=== PATIENT | male | born 1950 | race Caucasian/White ===

== ENCOUNTER 2017-12-07 11:28 | Emergency (ER) | payer MEDICARE ==
[~2017-12-07] VITALS: Ht 165.1 cm; Wt 77.3 kg
[~2017-12-07 11:28] MED LIST: ADV100/50 INH; ADV250/50 INH; ALB6.7R INH; ALBU8.5H12 IH; ALL300 PO; AMO500 PO; ASP81 PO; ASPI-715 PO; AZIT500T47 PO; CAR6.25 PO; CEFU500T50 PO; CELE-1 PO; CIP500 PO; COLC0.6T2 PO; CYC10 PO; DOXY-179 PO; ENA25 PO; FLUT1DIS28 IH; FURO-43 PO; GUAI480S48 PO; HYDR2TAB4 PO; IPRA3AMP37 IH; ISOS30TA51 PO; KET10 PO; LEV500 PO; LEVO-85 PO; LOR10/500 PO; LOR5 PO; LOR5/325 PO; MEC25 PO; MELA3TAB14 PO; MELO-149 PO; METH4TAB57 PO; METO-1 PO; METR-1 PO; MIR; MIR15 PO; MOM PO; MOMR NS; NAP250 PO; NAPR-1043 PO; NAPR500T31 PO; NIT4 SL; NITR60OI TOP; OXY10 PO; OXYC-528 PO; OXYC-689 PO; OXYC-865 PO; OXYC-869 PO; OXYGEN INH; PAN20 PO; PAN40 PO; PER PO; PRE10 PO; PRE20 PO; PRE5 PO; PRED20TA6 PO; PRO25 PO; PROAIRPT IH; PSYP PO; SIMV-44 PO; SUC1 PO
[2017-12-07] MEDS ORDERED: LISI-374 (11:35)
[2017-12-07] MEDS ORDERED: NS(*) 0.9% 1000 ML BAG 1,000 ML IV ONE (11:58)
[2017-12-07] MEDS ORDERED: diphenhydrAMINE 50 MG/ML VIAL IVP ONE (12:00)
[2017-12-07] MEDS ORDERED: METOCLOPRAMIDE 10 MG/2 ML SDV IVP ONE (12:00)
--- NOTE | 2017-12-07 12:10 | ER Report ---
History and Physical Time Seen By MD: 11:37 Hx. 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 Denies prior migraines denies knowledge of migraines in the family denies trauma denies prior cranial pathology or surgery denies neurological deficits denies visual changes denies fevers. Endorses chills. Denies other symptoms including sore throat cough chest pain shortness of breath rashes. No other concerns or complaints today. He normally uses marijuana unknown amount daily duration many many years, however he has not used in the last few days due to discomfort from the headaches. Denies other alcohol or drugs. REVIEW OF SYSTEMS: Constitutional: Otherwise negative Eyes: No discharge. ENT: No sore throat. Cardiovascular: No chest pain, no palpitations. Respiratory: No cough, no shortness of breath. Gastrointestinal: No abdominal pain Genitourinary: No hematuria. Musculoskeletal: No back pain. Skin: No rashes. Neurological: No focal deficits Allergies: Coded Allergies: No Known Allergies (Verified Allergy, Mild, 12/07/17) Home Meds Active Scripts Hydrocodone Bit/Acetaminophen (HYDROCODON-ACETAMINOPHEN 5-325) 1 Each Tablet, 1 EACH PO Q4-6H Y for PAIN, #6 TAB 0 Refills TAKE ONE TABLET BY MOUTH EVERY 4-6 HOURS NEEDED FOR PAIN Prov:ДМИТРИЙ ABREU MD 09/20/17 Naproxen (NAPROXEN) 500 Mg Tablet, 500 MG PO BID for 7 Days, #14 TAB Prov:JULIEN BAILEY MD 07/30/17 Oxycodone Hcl/Acetaminophen (PERCOCET 5-325 MG TABLET) 1 Each Tablet, 1 EACH PO Q4-6H Y for PAIN, #14 Prov:MARIYA GARCIA MD 06/19/14 Reported Medications Lisinopril (LISINOPRIL) 40 Mg Tablet, BID 12/07/17 Albuterol Sulfate (PROVENTIL HFA) 6.7 Gm Inh, 1-2 PUFF INH 3-4XD, INH 08/20/16 Melatonin (MELATONIN) 3 Mg Tab.rapdis, 3 MG PO DAILY 02/27/16 Carvedilol (Coreg) 6.25 Mg Tab, 6.25 MG PO BID, 0 Refills 08/29/11 Aspirin (Aspirin) 81 Mg Tablet.dr, 81 MG PO DAILY, 0 Refills Hold if going to have surgery 08/29/11 Pantoprazole Sod (Protonix) 40 Mg Tabec, 40 MG PO BID, 0 Refills 08/29/11 Hx Smoking: Yes Smoking Status: Former Smoker Exposure to Second Hand Smoke?: No Hx Substance Use Disorder: Yes (weed) Hx Alcohol Use: No Constitutional Vital Sign - Last 24 Hours 12/07/17 12/07/17 12/07/17 12/07/17 11:33 11:35 11:38 11:48 Temp 98.1 Pulse 54 59 53 Resp 16 B/P (MAP) 134/103 (113) 134/103 Pulse Ox 97 97 98 O2 Delivery Room Air 12/07/17 12/07/17 12/07/17 12/07/17 11:53 11:58 12:00 12:03 Pulse 56 49 54 B/P (MAP) 149/88 (108) Pulse Ox 98 95 94 12/07/17 12/07/17 12/07/17 12/07/17 12:08 12:13 12:18 12:23 Pulse 61 61 55 63 Pulse Ox 95 95 94 92 12/07/17 12/07/17 12/07/17 12/07/17 12:28 12:30 12:33 12:38 Pulse 63 70 51 B/P (MAP) 108/90 (96) Pulse Ox 94 93 94 12/07/17 12/07/17 12:43 12:48 Pulse 51 67 Pulse Ox 93 93 Intake and Output 12/07/17 12/07/17 12/08/17 15:00 23:00 07:00 Intake Total 1000 ml Balance 1000 ml Physical Exam General Appearance: The patient is alert, has no immediate need for airway protection and no signs of toxicity. Appears moderately uncomfortable Eyes: Pupils equal and round no pallor or injection. Extraocular movements intact ENT, Mouth: Mucous membranes are moist. Respiratory: There are no retractions, lungs are clear to auscultation. Cardiovascular: Regular rate and rhythm. No murmurs gallops or rubs Gastrointestinal: Abdomen is scaphoid bowel sounds are normal Neurological: Normal neurological exam including cranial nerves Skin: Warm and dry, no rashes. Musculoskeletal: Neck is supple non tender. Extremities are nontender, nonswollen and have full range of motion. No edema DIFFERENTIAL DIAGNOSIS: After history and physical exam differential diagnosis was considered for hypertensive bleed, mass effect, subarachnoid or subdural less likely, migraine type headache or other vascular headache. Plan for CT scan of the head and neck and laboratory survey to include ESR and migraine cocktail with fluids with reevaluation. Medical Decision Making Data Points Result Diagram: 12/07/17 1143 12/07/17 1143 Laboratory Hematology Test 12/07/17 11:43 Red Blood Count 5.07 M/uL (4.00-5.60) Mean Corpuscular Volume 96.9 fL (80.0-96.0) Mean Corpuscular Hemoglobin 33.6 pg (26.0-33.0) Mean Corpuscular Hemoglobin Concent 34.7 g/dL (32.0-36.0) Red Cell Distribution Width 13.4 % (11.5-14.5) Mean Platelet Volume 8.4 fL (7.2-11.1) Neutrophils (%) (Auto) 71.4 % (39.4-72.5) Lymphocytes (%) (Auto) 20.0 % (17.6-49.6) Monocytes (%) (Auto) 5.2 % (4.1-12.4) Eosinophils (%) (Auto) 2.5 % (0.4-6.7) Basophils (%) (Auto) 0.9 % (0.3-1.4) Nucleated RBC Relative Count (auto) 0.0 /100WBC Neutrophils # (Auto) 5.4 K/uL (2.0-7.4) Lymphocytes # (Auto) 1.5 K/uL (1.3-3.6) Monocytes # (Auto) 0.4 K/uL (0.3-1.0) Eosinophils # (Auto) 0.2 K/uL (0.0-0.5) Basophils # (Auto) 0.1 K/uL (0.0-0.1) Nucleated RBC Absolute Count (auto) 0.00 K/uL Erythrocyte Sedimentation Rate 5 mm/HOUR (0-20) Sodium Level 139 mmol/L (137-145) Potassium Level 4.1 mmol/L (3.5-5.0) Chloride Level 106 mmol/L (98-107) Carbon Dioxide Level 22 mmol/L (22-30) Blood Urea Nitrogen 15 mg/dl (9-21) Creatinine 0.70 mg/dl (0.66-1.25) Glomerular Filtration Rate Calc > 60.0 Random Glucose 128 mg/dl (75-110) Calcium Level 9.2 mg/dl (8.4-10.2) Chemistry Test 12/07/17 11:43 White Blood Count 7.5 k/uL (4.5-11.0) Red Blood Count 5.07 M/uL (4.00-5.60) Hemoglobin 17.0 g/dL (14.0-18.0) Hematocrit 49.1 % (42.0-52.0) Mean Corpuscular Volume 96.9 fL (80.0-96.0) Mean Corpuscular Hemoglobin 33.6 pg (26.0-33.0) Mean Corpuscular Hemoglobin Concent 34.7 g/dL (32.0-36.0) Red Cell Distribution Width 13.4 % (11.5-14.5) Platelet Count 236 K/uL (150-450) Mean Platelet Volume 8.4 fL (7.2-11.1) Neutrophils (%) (Auto) 71.4 % (39.4-72.5) Lymphocytes (%) (Auto) 20.0 % (17.6-49.6) Monocytes (%) (Auto) 5.2 % (4.1-12.4) Eosinophils (%) (Auto) 2.5 % (0.4-6.7) Basophils (%) (Auto) 0.9 % (0.3-1.4) Nucleated RBC Relative Count (auto) 0.0 /100WBC Neutrophils # (Auto) 5.4 K/uL (2.0-7.4) Lymphocytes # (Auto) 1.5 K/uL (1.3-3.6) Monocytes # (Auto) 0.4 K/uL (0.3-1.0) Eosinophils # (Auto) 0.2 K/uL (0.0-0.5) Basophils # (Auto) 0.1 K/uL (0.0-0.1) Nucleated RBC Absolute Count (auto) 0.00 K/uL Erythrocyte Sedimentation Rate 5 mm/HOUR (0-20) Glomerular Filtration Rate Calc > 60.0 Calcium Level 9.2 mg/dl (8.4-10.2) ED Course/Re-evaluation ED Course The plan was discussed and agreed upon prior to orders placed. Re-evaluation Pain improved, patient feeling better and ready to go home. All results were discussed with patient and family all questions answered and understood I recommended PCP follow-up for discussion of possible migraine medication as needed, Excedrin Migraine for now should headache recur patient will go home to sleep in a dark room at this time. Decision to Disposition Date: Dec 07, 2017 Decision to Disposition Time: 14:44 Depart Departure Latest Vital Signs Vital Signs Date Time Temp Pulse Resp B/P (MAP) Pulse Ox O2 Delivery O2 Flow Rate FiO2 12/07/17 12:48 67 93 12/07/17 12:30 108/90 (96) 12/07/17 11:35 98.1 16 Room Air Impression: Primary Impression: Acute headache Condition: Improved Disposition: HOME OR SELF-CARE Referrals: CHELLE CRANDALL MD (PCP) Patient Instructions: Acute Headache (ED) Problem Qualifiers Primary Impression: Acute headache Headache type: unspecified Intractability: not intractable Qualified Codes : R51 - Headache CHELITA TRIPLETT MD Dec 07, 2017 12:10
[2017-12-07 12:13] LABS: PLATELET COUNT, AUTOMATED 236 K/uL (150-450)
[2017-12-07] MEDS ORDERED: IOPAMIDOL 76% 75 ML INFUS BTL 75 ML ONE (12:59)
[2017-12-07] MEDS ORDERED: NS 0.9% 20 ML SDV 60 ML ONE (12:59)
[2017-12-07 13:00] VITALS: BP 129/83
--- NOTE | 2017-12-07 14:02 | RADIOLOGY IMAGING REPORT ---
[place] [facility] [place] Ritesh Stevens : 1950 MR: [id number] V: [id number] EXAM DATE: ORDERING PHYSICIAN: CHELITA TRIPLETT TECHNOLOGIST: Location: [facility] Patient: Ritesh Stevens : 1950 Visit/Account:[id number] Date of Sevice: 12/07/2017 EXAMINATION: CT head without IV contrast HISTORY: Headache. COMPARISON: Brain MRI from 06/15/[address] head from 08/20/2016. TECHNIQUE: Contiguous axial images were obtained from the skull base to the vertex without intraven ous contrast. Sagittal and coronal reformatted images are also submitted. One of the following dose optimization techniques was utilized in the performance of this exam: Autom ated exposure control; adjustment of the mA and/or kV according to the patient's size; or use of an i terative reconstruction technique. Specific details can be referenced in the facility's radiology C T exam operational policy. FINDINGS: Brain volume: Mild generalized atrophy with associated concordant prominence of the ventricular syst em. Ventricles: Normal. Acute ischemic changes: None. Hemorrhage: No acute intracranial hemorrhage. Masses/edema: None. Archibald-white: Small area of encephalomalacia in the left cerebellum and small to moderate area of encep halomalacia in the right temporal occipital region, new from previous exams. White matter: Normal. Vessels: Negative. Extra-axial: Negative. Calvarium/scalp: Negative. Skull base/visualized face: Negative. Visualized sinuses/orbits: There is moderate concentric mucosal thickening in the left maxillary sin us and mild mucosal thickening otherwise normal sinuses. IMPRESSION: 1. No intracranial mass lesion or hemorrhage. No CT evidence of acute infarct. 2. 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 3. Moderate patchy inflammation of the paranasal sinuses, worst in the left maxillary sinus. Report Dictated By: Charo Zafar MD at 12/07/2017 1:52 PM Report E-Signed By: Charo Zafar MD at 12/07/2017 1:57 PM WSN:[id number]
--- NOTE | 2017-12-07 14:03 | RADIOLOGY IMAGING REPORT ---
FACILITY: [facility] PATIENT NAME: Ritesh Stevens : 1950 MR: [id number] V: [id number] EXAM DATE: ORDERING PHYSICIAN: CHELITA TRIPLETT TECHNOLOGIST: Location: [facility] Patient: Ritesh Stevens : 1950 Visit/Account:[id number] Date of Sevice: 12/07/2017 CT ANGIOGRAM HEAD W/ CONTRAST HISTORY: headache EXAMINATION: CT scan of the head without contrast CTA of the Neck with IV contrast CTA of the Head with IV contrast One of the following dose optimization techniques was utilized in the performance of this exam: Autom ated exposure control; adjustment of the mA and/or kV according to the patient's size; or use of an i terative reconstruction technique. Specific details can be referenced in the facility's radiology C T exam operational policy. TECHNIQUE: Overlapping thin sections were obtained during a bolus of IV contrast from the aortic ar ch through the vertex. Reconstruction of the source data set includes multiplanar 2D in the sagittal and coronal planes, and 3D coronal thin slab MIP series. 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 Stenosis of the internal carotid arteries are calculated using NASCET criteria. Contrast: 75 mL of IV Isovue-[address] scan of the head from 12/07/2017 TECHNIQUE: Contiguous axial images were obtained from the skull base to the vertex without intravenou s contrast. One of the following dose optimization techniques was utilized in the performance of this exam: Autom ated exposure control; adjustment of the mA and/or kV according to the patient's size; or use of an i terative reconstruction technique. Specific details can be referenced in the facility's radiology C T exam operational policy. COMPARISON STUDIES: None FINDINGS: Within the posterior temporal lobe there is a wedge-shaped area of diminished attenuation of the kurt ex extending into the white matter tracts measuring approximately 3 cm in greatest dimension. This is new when compared to the previous CT scan of 08/20/2016. Second area of focal wedge-shaped cortical infarction is seen in the left occipital lobe (image 11) m easuring approximately a centimeter in size. The ventricular system is midline in position and normal in configuration. Remainder the cortical gra y and white matter tracts are normal in both cerebral hemispheres. Calvarium is unremarkable. Mastoid air cells well-aerated. There is nearly complete opacification of the left maxillary sinus. This was similar to the previous examination Angiographic findings: Aortic arch and great vessels: negative Right CCA / ICA: Widely patent common and internal carotid arteries with no atherosclerotic disease or flow-limiting lesions Left CCA / ICA: Widely patent common and left internal carotid arteries with no atherosclerotic dis ease or flow-limiting lesions Vertebro-basilar: Both vertebral arteries are well visualized and opacified with no flow-limiting l esions or atherosclerotic disease. 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 Mild paraseptal emphysematous changes in the posterior aspects of the mid lung eddy. Thyroid normal. No pathologic lymphadenopathy in the neck. IMPRESSION: 1. Evidence of previous infarction in the superior posterior aspect of the right temporal lobe and a focus of focal infarction in the posterior inferior left cerebellum. 2. No acute vascular pathology. Specifically, no aneurysm or evidence of acute bleed. 3. Left maxillary mucous retention cyst or polyp occupying a good portion of the left maxillary sinus basically unchanged when compared to the previous study. Report Dictated By: Scott Berg MD at 12/07/2017 1:35 PM Report E-Signed By: Scott Berg MD at 12/07/2017 1:59 PM WSN:[id number]
[2017-12-07] MEDS ORDERED: KETOROLAC 30 MG/ML VIAL IVP ONE (14:10)
--- NOTE | 2017-12-07 14:10 | RADIOLOGY IMAGING REPORT ---
FACILITY: [facility] PATIENT NAME: Ritesh Stevens : 1950 MR: [id number] V: [id number] EXAM DATE: ORDERING PHYSICIAN: CHELITA TRIPLETT TECHNOLOGIST: Location: [facility] Patient: Ritesh Stevens : 1950 Visit/Account:[id number] Date of Sevice: 12/07/2017 CTA NECK/CAROTIDS W W/O CONTR HISTORY: headache Please refer to CTA scan of head and neck from same day. Report Dictated By: Scott Berg MD at 12/07/2017 2:04 PM Report E-Signed By: Scott Berg MD at 12/07/2017 2:06 PM WSN:[id number]
== END 2017-12-07 14:48 | disposition home or self-care (01) ==
LOC: ER 11:36
DX: R51 Headache (principal)
CPT/HCPCS: 70450; 70496; 70498; 85025; 85651; 96361; 96374; 96375; 99284; J1200; J1885; J2765; J7030; J7050; Q9967; 82310; 82374; 82435; 82565; 82947; 84132; 84295; 84520

== ENCOUNTER → 2017-12-10 | Outpatient (CLI) | payer MEDICARE ==
[~2017-12-10] MED LIST changes: +LISI-374
== END ==
LOC: RESP 01:24
PROVIDERS: ATTEND Family Medicine
DX: I20.9 Angina pectoris, unspecified (principal)
CPT/HCPCS: 93017

== ENCOUNTER → 2018-04-03 | Outpatient (CLI) | payer MEDICARE ==
[~2018-04-03] MED LIST changes: +BARIUM SULFATE 148 GM POWDER ONE; +BARIUM SULFATE 240 ML ORAL SUS (NECTAR) ONE
--- NOTE | 2018-04-03 14:28 | RADIOLOGY IMAGING REPORT ---
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 Findings: The modified barium swallow was performed by the speech pathologist. Fluoroscopic assistance was pro vided. Patient received thin barium and various food substances and a barium tablet. There is mild oral pharyngeal dysphasia. Please see the speech pathologist report for complete details. The fluor oscopy dose area product was 404.47 micro-Archibald per meter squared IMPRESSION: 1. As above Report Dictated By: Jessica Barnes MD at 04/03/2018 2:24 PM Report E-Signed By: Jessica Barnes MD at 04/03/2018 2:25 PM WSN:[email or web address]
== END ==
LOC: RAD 00:26
PROVIDERS: ATTEND Family Medicine
DX: R13.12 Dysphagia, oropharyngeal phase (principal)
CPT/HCPCS: 74230

== ENCOUNTER 2018-09-21 17:44 | Emergency (ER) | payer MEDICARE ==
[~2018-09-21 17:44] MED LIST changes: -BARIUM SULFATE 148 GM POWDER ONE; -BARIUM SULFATE 240 ML ORAL SUS (NECTAR) ONE
--- NOTE | 2018-09-21 17:56 | ER Report ---
History and Physical Time Seen By MD: 17:54 HPI/ROS CHIEF COMPLAINT: Loss of vision,? Stroke HISTORY OF PRESENT ILLNESS: 68-year-old male with a history of previous strokes presents with loss of vision in his right eye since 1 PM today. He notes he's having trouble seeing out of the lateral aspect of his eye. She notes no headache. No nausea or vomiting. He notes no fever or chills. He denies stiff neck. Patient also notes a mild chest pain. He notes some tightness. He rates it 2 out of 10 without associated symptoms. Patient has a history of coronary artery disease, status post previous NV. Patient had CTA of carotids and head in November of this year. They were notable for 2 old strokes. REVIEW OF SYSTEMS: Respiratory: No cough, no dyspnea. Cardiovascular: As above Gastrointestinal: No vomiting, no abdominal pain. Musculoskeletal: No back pain. Allergies: Coded Allergies: No Known Allergies (Verified Allergy, Mild, 09/21/18) Home Meds Reported Medications Lisinopril (LISINOPRIL) 40 Mg Tablet, BID 12/07/17 Albuterol Sulfate (PROVENTIL HFA) 6.7 Gm Inh, 1-2 PUFF INH 3-4XD, INH 08/20/16 Melatonin (MELATONIN) 3 Mg Tab.rapdis, 3 MG PO DAILY 02/27/16 Carvedilol (Coreg) 6.25 Mg Tab, 6.25 MG PO BID, 0 Refills 08/29/11 Aspirin (Aspirin) 81 Mg Tablet.dr, 81 MG PO DAILY, 0 Refills Hold if going to have surgery 08/29/11 Pantoprazole Sod (Protonix) 40 Mg Tabec, 40 MG PO BID, 0 Refills 08/29/11 Discontinued Scripts Hydrocodone Bit/Acetaminophen (HYDROCODON-ACETAMINOPHEN 5-325) 1 Each Tablet, 1 EACH PO Q4-6H PRN for PAIN, #6 TAB 0 Refills TAKE ONE TABLET BY MOUTH EVERY 4-6 HOURS NEEDED FOR PAIN Prov:ДМИТРИЙ ABREU MD 09/20/17 Naproxen (NAPROXEN) 500 Mg Tablet, 500 MG PO BID for 7 Days, #14 TAB Prov:JULIEN BAILEY MD 07/30/17 Oxycodone Hcl/Acetaminophen (PERCOCET 5-325 MG TABLET) 1 Each Tablet, 1 EACH PO Q4-6H PRN for PAIN, #14 Prov:MARIYA GARCIA MD 06/19/14 Past Medical/Surgical History Patient has a past medical history of NV, hypertension, hyperlipidemia, asthma, reflux, hiatal hernia, fractures, hard of hearing, marijuana use. Patient has a surgical history of shoulder surgery, colectomy, hiatal hernia repair. Patient has a family medical history of cancer, CAD. Reviewed Nurses Notes: Yes Old Medical Records Reviewed: Yes Hx Smoking: Yes Smoking Status: Former Smoker Exposure to Second Hand Smoke?: No Hx Substance Use Disorder: Yes (weed) Hx Alcohol Use: No Constitutional Vital Sign - Last 24 Hours 09/21/18 09/21/18 09/21/18 09/21/18 17:44 17:51 18:00 18:03 Temp 98.0 Pulse 63 65 Resp 12 12 B/P (MAP) 156/117 (130) 158/111 (127) 158/111 Pulse Ox 93 89 O2 Delivery Room Air 09/21/18 09/21/18 09/21/18 09/21/18 18:14 18:30 18:44 19:00 Pulse 63 61 Resp 9 21 B/P (MAP) 146/96 (113) 149/96 (113) Pulse Ox 92 93 09/21/18 09/21/18 09/21/18 09/21/18 19:05 20:22 20:27 20:29 Pulse 60 65 60 Resp 26 14 B/P (MAP) 114/111 (112) Pulse Ox 89 89 89 09/21/18 20:30 B/P (MAP) 137/103 (114) Physical Exam Vital signs stable, afebrile, pulse ox normal General Appearance: The patient is alert, has no immediate need for airway protection and no signs of toxicity. Alert and oriented 3 Eyes: Pupils equal and round no pallor or injection. ENT, Mouth: Mucous membranes are moist. Respiratory: There are no retractions, lungs are clear to auscultation. Cardiovascular: Regular rate and rhythm. Gastrointestinal: Abdomen is soft and non tender, no masses, bowel sounds normal. Neurological: Alert and oriented 3, cranial nerves II through XII intact except inferior lateral field of vision is gone from the right eye on oppositional testing., Motor 5/5 all groups, sensory intact to light touch 4 Skin: Warm and dry, no rashes. Musculoskeletal: Neck is supple non tender., No bruits Extremities are nontender, nonswollen and have full range of motion. DIFFERENTIAL DIAGNOSIS: After history and physical exam differential diagnosis was considered for weakness including but not limited to electrolyte abnormality, depression, anxiety, CVA, spinal cord abnormality, versus effusion and infectious causes. Medical Decision Making Data Points Result Diagram: 09/21/18175109/21/181751 Laboratory Hematology Test 09/21/18 17:52 Red Blood Count 5.39 M/uL (4.00-5.60) Mean Corpuscular Volume 96.8 fL (80.0-96.0) Mean Corpuscular Hemoglobin 33.4 pg (26.0-33.0) Mean Corpuscular Hemoglobin Concent 34.5 g/dL (32.0-36.0) Red Cell Distribution Width 13.4 % (11.5-14.5) Mean Platelet Volume 8.7 fL (7.2-11.1) Neutrophils (%) (Auto) 46.9 % (39.4-72.5) Lymphocytes (%) (Auto) 37.5 % (17.6-49.6) Monocytes (%) (Auto) 8.6 % (4.1-12.4) Eosinophils (%) (Auto) 5.8 % (0.4-6.7) Basophils (%) (Auto) 1.2 % (0.3-1.4) Nucleated RBC Relative Count (auto) 0.0 /100WBC Neutrophils # (Auto) 3.2 K/uL (2.0-7.4) Lymphocytes # (Auto) 2.5 K/uL (1.3-3.6) Monocytes # (Auto) 0.6 K/uL (0.3-1.0) Eosinophils # (Auto) 0.4 K/uL (0.0-0.5) Basophils # (Auto) 0.1 K/uL (0.0-0.1) Nucleated RBC Absolute Count (auto) 0.00 K/uL Prothrombin Time 13.2 seconds (12.0-14.4) Prothromb Time International Ratio 1.00 Activated Partial Thromboplast Time 31 seconds (23-35) Sodium Level 139 mmol/L (137-145) Potassium Level 4.1 mmol/L (3.5-5.0) Chloride Level 106 mmol/L (98-107) Carbon Dioxide Level 23 mmol/L (22-30) Blood Urea Nitrogen 18 mg/dl (9-21) Creatinine 0.80 mg/dl (0.66-1.25) Glomerular Filtration Rate Calc > 60.0 Random Glucose 151 mg/dl (75-110) Calcium Level 9.0 mg/dl (8.4-10.2) Total Bilirubin 0.9 mg/dl (0.2-1.3) Aspartate Amino Transf (AST/SGOT) 29 U/L (0-35) Alanine Aminotransferase (ALT/SGPT) 31 U/L (0-56) Alkaline Phosphatase 74 U/L (0-126) Troponin I < 0.012 ng/ml B-Type Natriuretic Peptide 24 pg/ml (0-100) Total Protein 7.5 g/dl (6.3-8.2) Albumin 4.2 g/dl (3.5-5.0) Chemistry Test 09/21/18 17:52 White Blood Count 6.8 k/uL (4.5-11.0) Red Blood Count 5.39 M/uL (4.00-5.60) Hemoglobin 18.0 g/dL (14.0-18.0) Hematocrit 52.1 % (42.0-52.0) Mean Corpuscular Volume 96.8 fL (80.0-96.0) Mean Corpuscular Hemoglobin 33.4 pg (26.0-33.0) Mean Corpuscular Hemoglobin Concent 34.5 g/dL (32.0-36.0) Red Cell Distribution Width 13.4 % (11.5-14.5) Platelet Count 218 K/uL (150-450) Mean Platelet Volume 8.7 fL (7.2-11.1) Neutrophils (%) (Auto) 46.9 % (39.4-72.5) Lymphocytes (%) (Auto) 37.5 % (17.6-49.6) Monocytes (%) (Auto) 8.6 % (4.1-12.4) Eosinophils (%) (Auto) 5.8 % (0.4-6.7) Basophils (%) (Auto) 1.2 % (0.3-1.4) Nucleated RBC Relative Count (auto) 0.0 /100WBC Neutrophils # (Auto) 3.2 K/uL (2.0-7.4) Lymphocytes # (Auto) 2.5 K/uL (1.3-3.6) Monocytes # (Auto) 0.6 K/uL (0.3-1.0) Eosinophils # (Auto) 0.4 K/uL (0.0-0.5) Basophils # (Auto) 0.1 K/uL (0.0-0.1) Nucleated RBC Absolute Count (auto) 0.00 K/uL Prothrombin Time 13.2 seconds (12.0-14.4) Prothromb Time International Ratio 1.00 Activated Partial Thromboplast Time 31 seconds (23-35) Glomerular Filtration Rate Calc > 60.0 Calcium Level 9.0 mg/dl (8.4-10.2) Total Bilirubin 0.9 mg/dl (0.2-1.3) Aspartate Amino Transf (AST/SGOT) 29 U/L (0-35) Alanine Aminotransferase (ALT/SGPT) 31 U/L (0-56) Alkaline Phosphatase 74 U/L (0-126) Troponin I < 0.012 ng/ml B-Type Natriuretic Peptide 24 pg/ml (0-100) Total Protein 7.5 g/dl (6.3-8.2) Albumin 4.2 g/dl (3.5-5.0) Coagulation Test 09/21/18 17:52 Prothrombin Time 13.2 seconds Prothromb Time International Ratio 1.00 Activated Partial Thromboplast Time 31 seconds EKG/Imaging EKG Interpretation 12 lead EK Rhythm: normal sinus rhythm [place]: normal QRS: Old anterior Q waves noted ST segments: normal, comparison to previous EKG dated 09/20/17. There is some flattening of the biphasic T waves in V1 through V3, nonspecific in nature Imaging Results: CT scan of the head without contrast, stroke alert was obtained. The results of the study are EXAMINATION: Head CT without intravenous contrast HISTORY: Vision changes. COMPARISON: 12/07/2017. TECHNIQUE: Contiguous axial images were obtained from the skull base to the vertex without intravenous contrast. Sagittal and coronal reformatted images are also submitted. One of the following dose optimization techniques was utilized in the performance of this exam: Automated exposure control; adjustment of the mA and/or kV according to the patient's size; or use of an iterative reconstruction technique. Specific details can be referenced in the facility's radiology CT exam operational policy. FINDINGS: Brain and intracranial structures: Chronic right temporal occipital infarct is unchanged. Chronic infarct in the left cerebellar hemisphere is unchanged. No midline shift, acute hemorrhage, mass, or evidence of acute infarct. Calvarium / scalp: Negative. Skull base / visualized face: Negative. Visualized sinuses / orbits: Mucous retention cyst and mild mucosal thickening in the left maxillary sinus. Mild mucosal thickening in the ethmoid air cells and right maxillary sinus. IMPRESSION: No intracranial hemorrhage or evidence of acute infarct. Unchanged chronic infarcts in the left cerebellar hemisphere and right temporal occipital region. The study was read by the radiologist. I viewed the images myself on the PACS system. X-ray: Single view portable chest x-ray was obtained. I viewed the images myself on the PACS system. My interpretation of the images is: No infiltrate, no effusion, normal mediastinum., Comparison to previous film dated 09/20/17, no significant change. The radiologist interpretation had no clinically significant variation from this interpretation. Old CT scans from December 152017 were reviewed.: See below CT scan of the head without contrast CTA of the Neck with IV contrast CTA of the Head with IV contrast One of the following dose optimization techniques was utilized in the performance of this exam: Automated exposure control; adjustment of the mA an d/or kV according to the patient's size; or use of an iterative reconstruction technique. Specific details can be referenced in the facility's radiology CT exam operational policy. TECHNIQUE: Overlapping thin sections were obtained during a bolus of IV contrast from the aortic arch through the vertex. Reconstruction of the source data set includes multiplanar 2D in the sagittal and coronal planes, and 3D coronal thin slab MIP series. Pedodontist images have been stored on PACS. Stenosis of the internal carotid arteries are calculated using NASCET criteria. Contrast: 75 mL of IV [id number] scan of the head from 12/07/2017 TECHNIQUE: Contiguous axial images were obtained from the skull base to the vertex without intravenous contrast. One of the following dose optimization techniques was utilized in the performance of this exam: Automated exposure control; adjustment of the mA and/or kV according to the patient's size; or use of an iterative reconst ruction technique. Specific details can be referenced in the facility's radiology CT exam operational policy. COMPARISON STUDIES: None FINDINGS: Within the posterior temporal lobe there is a wedge-shaped area of diminished attenuation of the cortex extending into the white matter tracts measuring approximately 3 cm in greatest dimension. This is new when compared to the previous CT scan of 08/20/2016. Second area of focal wedge-shaped cortical infarction is seen in the left occipital lobe (image 11) measuring approximately a centimeter in size. The ventricular system is midline in position and normal in configuration. Remainder the cortical reyez and white matter tracts are normal in both cerebral hemispheres. Calvarium is unremarkable. Mastoid air cells well-aerated. There is nearly complete opacification of the left maxillary sinus. This was similar to the previous examination Angiographic findings: Aortic arch and great vessels: negative Right CCA / ICA: Widely patent common and internal carotid arteries with no atherosclerotic disease or flow-limiting lesions Left CCA / ICA: Widely patent common and left internal carotid arteries with no atherosclerotic disease or flow-limiting lesions Vertebro-basilar: Both vertebral arteries are well visualized and opacified with no flow-limiting lesions or atherosclerotic disease. [place]: negative SAM circulation: negative MCA circulation: negative SHEET WRITER circulation: negative Additional non-angiographic findings: Lung bases are clear. Mild paraseptal emphysematous changes in the posterior aspects of the mid lung eddy. Thyroid normal. No pathologic lymphadenopathy in the neck. IMPRESSION: 1. Evidence of previous infarction in the superior posterior aspect of the right temporal lobe and a focus of focal infarction in the posterior inferior left cerebellum. 2. No acute vascular pathology. Specifically, no aneurysm or evidence of acute bleed. 3. Left maxillary mucous retention cyst or polyp occupying a good portion of the left maxillary sinus basically unchanged when compared to the previous study. Results: MRI of the brain without contrast was obtained. The results of the study are EXAMINATION: Brain MRI without IV contrast HISTORY: Loss of lateral vision in right eye. COMPARISON: MRI of the brain from 06/15/2015. CT of the head from the same day. TECHNIQUE: Multi-planar, multi-sequence brain MRI was performed without IV contrast administration. FINDINGS: Brain and other intracranial structures: Chronic right temporal occipital infarcts and chronic left cerebellar infarct. There is hemosiderin staining along the chronic right temporal occipital infarct. Mild burden of small T2 hyperintense foci scattered within the cerebral white matter. No midline shift, mass, or acute infarct. Calvarium / scalp: Negative. Skull base: Negative. Visualized sinuses / orbits: Mucous retention cyst in the left maxillary sinus. Mild mucosal thickening in the ethmoid air cells and frontal sinuses. IMPRESSION: No acute intracranial abnormality. No acute infarct. Chronic right temporal occipital and left cerebellar infarcts. Mild white matter changes, likely chronic small vessel ischemic changes. The study was read by the radiologist. I viewed the images myself on the PACS system. ED Course/Re-evaluation Clinical Indication for ER IV: IV Access ED Course Patient was admitted to an examination room. H&P was done. The differential diagnoses was considered. Patient with loss of vision in his right eye. He has 2 previous strokes on record. Patient reports symptoms similar to his previous stroke. Patient has no focal neurologic findings except for loss of his lateral field of his right eye on a positional testing. Pronator drifting. His INH score is otherwise unremarkable. A stat CT scan is negative for acute findings. MRI of the brain is ordered, which is negative for acute findings as well. Patient has a focal infarction of his right eye. On examination of the redness. There is no retinal detachment or abnormality noted. Patient will likely need to start on Plavix therapy. He is referred to ophthalmology, Dr. Alda Cavanaugh and his primary care physician for consideration of further therapy. Decision to Disposition Date: Sep 21, 2018 Decision to Disposition Time: 20:48 Depart Departure Latest Vital Signs Vital Signs Date Time Temp Pulse Resp B/P (MAP) Pulse Ox O2 Delivery O2 Flow Rate FiO2 09/21/18 20:30 137/103 (114) 09/21/18 20:29 60 14 89 09/21/18 18:03 98.0 Room Air Impression: Primary Impression: Vision loss of right eye Additional Impressions: History of CVA (cerebrovascular accident) History of coronary artery disease Condition: Improved Disposition: HOME OR SELF-CARE Referrals: CHELLE CRANDALL MD (PCP) ALDA COOLEY MD Patient Instructions: Blurred Vision (ED) Additional Instructions: Continue taking all of your medications as prescribed Follow-up with ophthalmology, Dr. Alda Cooley tomorrow for reevaluation of the vision in your right eye Follow-up with Dr. Valverde you may need to be started on Plavix Problem Qualifiers LINDA CARLTON DO Sep 21, 2018 17:56
[2018-09-21 18:07] LABS: PLATELET COUNT, AUTOMATED 218 K/uL (150-450)
--- NOTE | 2018-09-21 18:33 | EKG ---
[place] [facility] [place] NAME: JONATHON BULLOCK : [id number] MR: [id number] V: [id number] EXAM DATE: ORDERING PHYSICIAN: LINDA CARLTON TECHNOLOGIST: KATHIE Test Reason : POSS STROKE Blood Pressure : / mmHG Vent. Rate : 063 BPM Atrial Rate : 063 BPM P-R Int : 142 ms QRS Dur : 084 ms QT Int : 412 ms P-R-T Axes : 039 -29 005 degrees QTc Int : 421 ms Sinus rhythm Possible previous inferior infarct Nonspecific ST-T changes Abnormal ECG Confirmed by JOSEFINA CALERO ([id number]) on 09/22/2018 6:20:15 AM Referred By: BIANKA Confirmed By:JOSEFINA CALERO
--- NOTE | 2018-09-21 18:34 | RADIOLOGY IMAGING REPORT ---
[place] [facility] [place] NAME[place] Ritesh Stevens : 1950 MR: [id number] V: [id number] EXAM DATE: ORDERING PHYSICIAN: LINDA CARLTON TECHNOLOGIST: Location: [facility] [place] Patient: Ritesh Stevens : 1950 Visit/Account:[id number] Date of Sevice: 09/21/2018 EXAMINATION: Head CT without intravenous contrast HISTORY: Vision changes. COMPARISON: 12/07/2017. TECHNIQUE: Contiguous axial images were obtained from the skull base to the vertex without intraven ous contrast. Sagittal and coronal reformatted images are also submitted. One of the following dose optimization techniques was utilized in the performance of this exam: Autom ated exposure control; adjustment of the mA and/or kV according to the patient's size; or use of an i terative reconstruction technique. Specific details can be referenced in the facility's radiology C T exam operational policy. FINDINGS: Brain and intracranial structures: Chronic right temporal occipital infarct is unchanged. Chronic in farct in the left cerebellar hemisphere is unchanged. No midline shift, acute hemorrhage, mass, or evidence of acute infarct. Calvarium / scalp: Negative. Skull base / visualized face: Negative. Visualized sinuses / orbits: Mucous retention cyst and mild mucosal thickening in the left maxillary sinus. Mild mucosal thickening in the ethmoid air cells and right maxillary sinus. IMPRESSION: No intracranial hemorrhage or evidence of acute infarct. Unchanged chronic infarcts in the left cerebellar hemisphere and right temporal occipital region. These findings were discussed with LINDA CARLTON at 09/21/2018 6:26 PM. Report Dictated By: Diogo De Jesus MD at 09/21/2018 6:19 PM Report E-Signed By: Diogo De Jesus MD at 09/21/2018 6:30 PM WSN:[id number]
--- NOTE | 2018-09-21 19:36 | RADIOLOGY IMAGING REPORT ---
FACILITY: [facility] [place] PATIENT NAME: Ritesh Stevens : 1950 MR: [id number] V: [id number] EXAM DATE: ORDERING PHYSICIAN: LINDA CARLTON TECHNOLOGIST: Location: [facility] Patient: Ritesh Stevens : 1950 Visit/Account:[id number] Date of Sevice: 09/21/2018 CHEST SINGLE AP Indication: Chest pain.. Comparison: 09/20/2017. Findings: Cardiomediastinal silhouette and pulmonary vessels within normal limits. There is no focal infiltrate or lobar consolidation. No pneumothorax or pleural effusion. No discrete nodule. Upper abdomen is unremarkable. Eventration left hemidiaphragm. No acute bony abno rmality. IMPRESSION: 1. No acute cardiopulmonary process. Report Dictated By: Amos Sheikh at 09/21/2018 7:30 PM Report E-Signed By: Amos Sheikh at 09/21/2018 7:32 PM WSN:[id number]
[2018-09-21 20:30] VITALS: BP 137/103
--- NOTE | 2018-09-21 20:32 | RADIOLOGY IMAGING REPORT ---
FACILITY: [facility] - [place] PATIENT NAME: Ritesh Stevens : 1950 MR: [id number] V: [id number] EXAM DATE: ORDERING PHYSICIAN: LINDA CARLTON TECHNOLOGIST: Location: [facility] [place] Patient: Ritesh Stevens : 1950 Visit/Account:[id number] Date of Sevice: 09/21/2018 EXAMINATION: Brain MRI without IV contrast HISTORY: Loss of lateral vision in right eye. COMPARISON: MRI of the brain from 06/15/2015. CT of the head from the same day. TECHNIQUE: Multi-planar, multi-sequence brain MRI was performed without IV contrast administration. FINDINGS: Brain and other intracranial structures: Chronic right temporal occipital infarcts and chronic left cerebellar infarct. There is hemosiderin staining along the chronic right temporal occipital infarct. Mild burden of small T2 hyperintense foci scattered within the cerebral white matter. No midline shift, mass, or acute infarct. Calvarium / scalp: Negative. Skull base: Negative. Visualized sinuses / orbits: Mucous retention cyst in the left maxillary sinus. Mild mucosal thicken ing in the ethmoid air cells and frontal sinuses. IMPRESSION: No acute intracranial abnormality. No acute infarct. Chronic right temporal occipital and left cerebellar infarcts. Mild white matter changes, likely chronic small vessel ischemic changes. Report Dictated By: Diogo De Jesus MD at 09/21/2018 8:17 PM Report E-Signed By: Diogo De Jesus MD at 09/21/2018 8:27 PM WSN:[id number]
== END 2018-09-21 21:00 | disposition home or self-care (01) ==
LOC: ER 17:58
DX: H54.61 Unqualified visual loss, right eye, normal vision left eye (principal); Z86.73 Personal history of transient ischemic attack (TIA), and cerebral infarction without residual deficits; I25.10 Atherosclerotic heart disease of native coronary artery without angina pectoris
CPT/HCPCS: 70450; 70551; 71045; 82040; 82247; 82310; 82374; 82435; 82565; 82947; 83880; 84075; 84132; 84155; 84295; 84450; 84460; 84484; 84520; 85025; 85610; 85730; 93005; 99284

== ENCOUNTER → 2018-09-25 | Outpatient (CLI) | payer MEDICARE ==
[~2018-09-25] MED LIST changes: +GADOBENATE 529MG/1ML 15ML VIAL IVP ONE
--- NOTE | 2018-09-25 12:49 | RADIOLOGY IMAGING REPORT ---
[place] [facility] [place] Ritesh Stevens : 1950 MR: [id number] V: [id number] EXAM DATE: ORDERING PHYSICIAN: ALEKS MEJIA TECHNOLOGIST: [place] [facility] [place]itesh [place] : 1950 Visit/Account:[id number] Date of Sevice: 09/25/2018 BRAIN W W/O CONTRAST Comparisons: None. Additional pertinent history: Peripheral visual field defect in the right eye. TECHNIQUE: Multiplanar, multisequence brain MRI was performed with and without gadolinium contrast. CONTRAST: 15 ml of MultiHance. FINDINGS: Sagittal midline structures and craniocervical junction: Negative. Midline shift: None. Ventricles: Negative. Brain parenchyma: Diffusion weighted imagin small foci of restricted diffusion involving the posterior aspects of the left occipital lobe compatible with 2 small foci of acute infarct. Gradient sequence: Negative. T2 weighted FLAIR images: Scattered foci of abnormal increased T2 signal within the subcortical whi te matter of both cerebral hemispheres. Region of developing encephalomalacia involving the posterior right temporal lobe as well as a region of developing encephalomalacia involving the left cerebellar hemisphere. These regions are compatible with areas of remote infarct. Extra-axial spaces: Negative. Dural venous sinuses and major arterial flow voids: Negative. Intracranial enhancement: Negative.. Mastoid air cells and paranasal sinuses: Large mucous retention cyst involving the left maxillary sin us. Mucosal thickening involving the ethmoid air cells and both frontal sinuses. Surrounding soft tissues and orbits: Negative. Impression: 1. 2 small foci of acute infarct involving the left occipital lobe. 2. Regions of remote infarct involving the posterior right temporal lobe and the left cerebellar paul sphere. 3. No intraparenchymal hemorrhage. Findings discussed with Dr. Mejia's nurse Deejay on date of exam at 12:30 PM. Report Dictated By: Aleks Daniel MD at 09/25/2018 12:15 PM Report E-Signed By: Aleks Daniel MD at 09/25/2018 12:44 PM WSN:[id number]
== END ==
LOC: MRI 00:41
PROVIDERS: ATTEND Family Medicine
DX: R90.89 Other abnormal findings on diagnostic imaging of central nervous system (principal)
CPT/HCPCS: 70553; A9577

== ENCOUNTER → 2018-10-01 | Outpatient (CLI) | payer MEDICARE ==
[~2018-10-01] MED LIST changes: -GADOBENATE 529MG/1ML 15ML VIAL IVP ONE
== END ==
LOC: US 00:53
PROVIDERS: ATTEND Family Medicine
DX: I34.0 Nonrheumatic mitral (valve) insufficiency (principal); I36.1 Nonrheumatic tricuspid (valve) insufficiency; I35.1 Nonrheumatic aortic (valve) insufficiency; R07.9 Chest pain, unspecified
CPT/HCPCS: 93306

== ENCOUNTER 2018-12-17 12:17 | Emergency (ER) | payer MEDICARE ==
[2018-12-17] MEDS ORDERED: ASPIRIN 81 MG CHEW PO ONE (12:20)
--- NOTE | 2018-12-17 12:30 | ER Report ---
History and Physical Time Seen By MD: 12:26 HPI/LAZARA CHIEF COMPLAINT: Chest pain HISTORY OF PRESENT ILLNESS: [age]-year-old male comes back to the emergency department with chest pain left-sided pleuritic been going on for 5 days completely reproduces please had this numerous times at least once or twice a week however didn't get better as as it normally does speak in the emergency room after calling his doctor in [place] patient has been seen here multiple times for similar complaints in the past. Patient on arrival to emergency department was still is having some mild episodic pleuritic no loosening or alleviating factors no nausea vomiting diarrhea fever chills abdominal pain no shortness of breath at this time patient is no additional complaints REVIEW OF SYSTEMS: Respiratory: No cough, no dyspnea. Cardiovascular: chest pain, no palpitations. Gastrointestinal: No vomiting, no abdominal pain. Musculoskeletal: No back pain. Remainder of the 14 system rev: Yes Allergies: Coded Allergies: No Known Allergies (Verified Allergy, Mild, 09/21/18) Home Meds Reported Medications Lisinopril (LISINOPRIL) 40 Mg Tablet, BID 12/07/17 Melatonin (MELATONIN) 3 Mg Tab.rapdis, 3 MG PO DAILY 02/27/16 Carvedilol (Coreg) 6.25 Mg Tab, 6.25 MG PO BID, 0 Refills 08/29/11 Aspirin (Aspirin) 81 Mg Tablet.dr, 81 MG PO DAILY, 0 Refills Hold if going to have surgery 08/29/11 Pantoprazole Sod (Protonix) 40 Mg Tabec, 40 MG PO BID, 0 Refills 08/29/11 Discontinued Reported Medications Albuterol Sulfate (PROVENTIL HFA) 6.7 Gm Inh, 1-2 PUFF INH 3-4XD, INH 08/20/16 Reviewed Nurses Notes: Yes Old Medical Records Reviewed: Yes Hx Smoking: Yes Smoking Status: Former Smoker Exposure to Second Hand Smoke?: No Hx Substance Use Disorder: Yes (weed) Hx Alcohol Use: No Constitutional Vital Sign - Last 24 Hours 12/17/18 12/17/18 12:22 12:35 Temp 98.2 Pulse 61 Resp 16 B/P (MAP) 153/122 Pulse Ox 90 O2 Delivery Room Air O2 Flow Rate 2.0 Physical Exam General Appearance: [The patient is alert, has no immediate need for airway pr otection and no current signs of toxicity.] [ ] Eyes: Pupils equal and round no injection. Respiratory: Chest is non tender, lungs are clear to auscultation. Cardiac: regular rate and rhythm [ ] Gastrointestinal: Abdomen is soft and non tender, no masses, bowel sounds normal. Musculoskeletal: Neck: Neck is supple and non tender. Extremities have full range of motion and are non tender. Skin: No rashes or lesions. [ ] DIFFERENTIAL DIAGNOSIS: After history and physical exam differential diagnosis was considered for musculoskeletal chest pain atypical chest pain myocardial infarction aortic dissection pulmonary embolus Medical Decision Making Data Points Result Diagram: 12/17/18 1224 12/17/18 1224 Laboratory Hematology Test 12/17/18 12:24 Red Blood Count 5.43 M/uL (4.00-5.60) Mean Corpuscular Volume 97.7 fL (80.0-96.0) Mean Corpuscular Hemoglobin 33.2 pg (26.0-33.0) Mean Corpuscular Hemoglobin Concent 33.9 g/dL (32.0-36.0) Red Cell Distribution Width 13.2 % (11.5-14.5) Mean Platelet Volume 8.0 fL (7.2-11.1) Neutrophils (%) (Auto) 57.6 % (39.4-72.5) Lymphocytes (%) (Auto) 26.6 % (17.6-49.6) Monocytes (%) (Auto) 10.1 % (4.1-12.4) Eosinophils (%) (Auto) 4.7 % (0.4-6.7) Basophils (%) (Auto) 1.0 % (0.3-1.4) Nucleated RBC Relative Count (auto) 0.0 /100WBC Neutrophils # (Auto) 4.0 K/uL (2.0-7.4) Lymphocytes # (Auto) 1.8 K/uL (1.3-3.6) Monocytes # (Auto) 0.7 K/uL (0.3-1.0) Eosinophils # (Auto) 0.3 K/uL (0.0-0.5) Basophils # (Auto) 0.1 K/uL (0.0-0.1) Nucleated RBC Absolute Count (auto) 0.00 K/uL D-Dimer Quantitative (PE/DVT) 0.32 ug/ml (0-0.50) Sodium Level 142 mmol/L (137-145) Potassium Level 4.4 mmol/L (3.5-5.0) Chloride Level 107 mmol/L (98-107) Carbon Dioxide Level 25 mmol/L (22-30) Blood Urea Nitrogen 19 mg/dl (9-21) Creatinine 0.80 mg/dl (0.66-1.25) Glomerular Filtration Rate Calc > 60.0 Random Glucose 110 mg/dl (75-110) Calcium Level 9.2 mg/dl (8.4-10.2) Total Bilirubin 1.5 mg/dl (0.2-1.3) Aspartate Amino Transf (AST/SGOT) 22 U/L (0-35) Alanine Aminotransferase (ALT/SGPT) 36 U/L (0-56) Alkaline Phosphatase 85 U/L (0-126) Troponin I < 0.012 ng/ml Total Protein 7.8 g/dl (6.3-8.2) Albumin 4.6 g/dl (3.5-5.0) Chemistry Test 12/17/18 12:24 White Blood Count 6.9 k/uL (4.5-11.0) Red Blood Count 5.43 M/uL (4.00-5.60) Hemoglobin 18.0 g/dL (14.0-18.0) Hematocrit 53.1 % (42.0-52.0) Mean Corpuscular Volume 97.7 fL (80.0-96.0) Mean Corpuscular Hemoglobin 33.2 pg (26.0-33.0) Mean Corpuscular Hemoglobin Concent 33.9 g/dL (32.0-36.0) Red Cell Distribution Width 13.2 % (11.5-14.5) Platelet Count 234 K/uL (150-450) Mean Platelet Volume 8.0 fL (7.2-11.1) Neutrophils (%) (Auto) 57.6 % (39.4-72.5) Lymphocytes (%) (Auto) 26.6 % (17.6-49.6) Monocytes (%) (Auto) 10.1 % (4.1-12.4) Eosinophils (%) (Auto) 4.7 % (0.4-6.7) Basophils (%) (Auto) 1.0 % (0.3-1.4) Nucleated RBC Relative Count (auto) 0.0 /100WBC Neutrophils # (Auto) 4.0 K/uL (2.0-7.4) Lymphocytes # (Auto) 1.8 K/uL (1.3-3.6) Monocytes # (Auto) 0.7 K/uL (0.3-1.0) Eosinophils # (Auto) 0.3 K/uL (0.0-0.5) Basophils # (Auto) 0.1 K/uL (0.0-0.1) Nucleated RBC Absolute Count (auto) 0.00 K/uL D-Dimer Quantitative (PE/DVT) 0.32 ug/ml (0-0.50) Glomerular Filtration Rate Calc > 60.0 Calcium Level 9.2 mg/dl (8.4-10.2) Total Bilirubin 1.5 mg/dl (0.2-1.3) Aspartate Amino Transf (AST/SGOT) 22 U/L (0-35) Alanine Aminotransferase (ALT/SGPT) 36 U/L (0-56) Alkaline Phosphatase 85 U/L (0-126) Troponin I < 0.012 ng/ml Total Protein 7.8 g/dl (6.3-8.2) Albumin 4.6 g/dl (3.5-5.0) Coagulation Test 12/17/18 12:24 D-Dimer Quantitative (PE/DVT) 0.32 ug/ml ED Course/Re-evaluation ED Course 68-year-old male returns emergency [facility] for atypical chest pain chest x-ray EKG blood markers all negative diagnosis noncardiac chest pain most likely musculoskeletal 5 with his chiseler head Decision to Disposition Date: Dec 17, 2018 Decision to Disposition Time: 13:34 Depart Departure Latest Vital Signs Vital Signs Date Time Temp Pulse Resp B/P (MAP) Pulse Ox O2 Delivery O2 Flow Rate FiO2 12/17/18 12:35 2.0 12/17/18 12:22 98.2 61 16 153/122 90 Room Air Impression: Primary Impression: Non-cardiac chest pain Condition: Improved Disposition: HOME OR SELF-CARE Referrals: CHELLE CRANDALL MD (PCP) 5 Days Patient Instructions: Noncardiac Chest Pain (DC) JACQUES GUILLEN MD Dec 17, 2018 12:30
--- NOTE | 2018-12-17 12:30 | EKG ---
FACILITY: [facility] - [place] PATIENT NAME: JONATHON BULLOCK : [id number] MR: [id number] V: [id number] EXAM DATE: ORDERING PHYSICIAN: JACQUES GUILLEN TECHNOLOGIST: KATHIE Test Reason : CP Blood Pressure : / mmHG Vent. Rate : 056 BPM Atrial Rate : 056 BPM P-R Int : 142 ms QRS Dur : 082 ms QT Int : 452 ms P-R-T Axes : 033 -12 019 degrees QTc Int : 436 ms Sinus bradycardia Otherwise normal ECG When compared with ECG of 21-SEP-2018 18:13, Criteria for Inferior infarct are no longer present Confirmed by COLLIN DUMONT ([id number]) on 12/17/2018 4:39:36 PM Referred By: MINDY Confirmed By:COLLIN DUMONT
[2018-12-17 12:32] LABS: PLATELET COUNT, AUTOMATED 234 K/uL (150-450)
[2018-12-17 13:20] VITALS: BP 148/95
--- NOTE | 2018-12-17 13:30 | RADIOLOGY IMAGING REPORT ---
FACILITY: [facility] - [place] PATIENT NAME: Ritesh Stevens : 1950 MR: [id number] V: [id number] EXAM DATE: ORDERING PHYSICIAN: JACQUES GUILLEN TECHNOLOGIST: Location: [facility] - [place] Patient: Ritesh Stevens : 1950 Visit/Account:[id number] Date of Sevice: 12/17/2018 Exam type: CHEST PA LAT History: cp Comparison: September 21, 2018 Findings: There are hypoventilatory changes in the lung eddy from a limited inspiratory effortThere is linear stranding in the left lung base likely representing discoid atelectasis. The lungs are otherwise fr ee of consolidation. There is no evidence of overt luminary edema or pleural effusions. No evidence of a pneumothorax or pneumomediastinum. The cardiac silhouette is normal in size.. IMPRESSION: 1. Hypoventilatory changes from a limited inspiratory effort Linear stranding left lung base likely represents discoid atelectasis Report Dictated By: Jessica Barnes MD at 12/17/2018 1:17 PM Report E-Signed By: Jessica Barnes MD at 12/17/2018 1:25 PM WSN:[id number]
== END 2018-12-17 13:46 | disposition home or self-care (01) ==
LOC: ER 12:26
DX: R07.9 Chest pain, unspecified (principal)
CPT/HCPCS: 71046; 82040; 82247; 82310; 82374; 82435; 82565; 82947; 84075; 84132; 84155; 84295; 84450; 84460; 84484; 84520; 85025; 85379; 93005; 99284

== ENCOUNTER → 2019-01-13 | Outpatient (CLI) | payer MEDICARE ==
[2019-01-13 12:38] LABS: LDL CHOLESTEROL 91 mg/dl
== END ==
LOC: LAB 11:40
PROVIDERS: ATTEND Internal Medicine Cardiovascular Disease
DX: R07.9 Chest pain, unspecified (principal)
CPT/HCPCS: 36415; 82040; 82247; 82310; 82374; 82435; 82465; 82565; 82947; 83036; 83718; 84075; 84132; 84155; 84295; 84443; 84450; 84460; 84478; 84520

== ENCOUNTER → 2019-01-21 | Outpatient (CLI) | payer MEDICARE ==
--- NOTE | 2019-01-21 17:14 | RT STRESS TEST REPORT ---
[place] [facility] [place] PATIENT NAME: JONATHON BULLOCK : [id number] MR: [id number] V: [id number] EXAM DATE: ORDERING PHYSICIAN: HAILEY DIAMOND TECHNOLOGIST: Valentin Acquisition Time: 2019-01-21 09:32:53 Total Exercise Time: 00:07:52 Test Indications: Chest Discomfort Medications: Protocol: RONNELL 2 Max HR: 115 BPM 76% of Pred: 151 BPM Max BP: 150/085 mmHG Max Work Load: 9.8 METS baseline EKG showed NSR with T wave changes in the inferior leads Patient unable to acheive target heart rate and became very short of breath, at that time test was st opped Impression Non diagnostic treadmill stress test because of inability to reach target heart rate Note patient may have taken his carvidelol on the day of stress test Confirmed by SHERINE UMANA ([id number]) on 01/21/2019 5:14:02 PM Referred By: Overread By: SHERINE UMANA
== END ==
LOC: RESP 01:34
PROVIDERS: ATTEND Internal Medicine Cardiovascular Disease
DX: R07.9 Chest pain, unspecified (principal)
CPT/HCPCS: 93017

== ENCOUNTER → 2019-03-05 | Outpatient (CLI) | payer MEDICARE ==
[~2019-03-05] MED LIST changes: +REGADENOSON 0.4 MG/5 ML SYR ONE
--- NOTE | 2019-03-05 16:19 | RADIOLOGY IMAGING REPORT ---
[place] [facility] [place] Ritesh Stevens : 1950 MR: [id number] V: [id number] EXAM DATE: ORDERING PHYSICIAN: HAILEY DIAMOND TECHNOLOGIST: Location: [facility] [place] Patient: Ritesh Stevens : 1950 Visit/Account:[id number] Date of Sevice: 03/05/2019 EXAMINATION: Single isotope SPECT imaging with regadenoson infusion and gated SPECT imaging. DATE OF EXAMINATION: March 05, 2019. DATE OF INTERPRETATION: March 05, 2019. REQUESTING PHYSICIAN: HAILEY DIAMOND. INDICATION: The patient is a 68-year-old male evaluated for chest pain. PROCEDURE: After informed consent the patient received an intravenous injection of 11.9 mCi of Tc-99 m sestamibi followed at an appropriate time interval by rest imaging. The patient then subsequently received an intravenous infusion of 0.4 mg of regadenoson per protocol without complication. Resting heart rate was 53 bpm with a peak heart rate of 79 bpm. Blood pressure at rest was 104 / 62 and fol lowing infusion was 111 / 76. Baseline EKG demonstrates normal sinus rhythm. There were no EKG gunderson ges of ischemia following infusion. Symptoms were nonspecific. The patient then received an intrave nous injection of 30.6 mCi of Tc-99m sestamibi followed by stress imaging. RAW DATA: Examination of the summed raw data revealed a good quality study. MYOCARDIAL PERFUSION: The tomographic images demonstrate a mild decrease in myocardial process perfu vlad tracer uptake in the basal to mid inferior wall seen on stress imaging not appreciated on rest i maging. GATED IMAGES: The gated images demonstrate an ejection fraction greater than 70% with inferior hypok inesis. IMPRESSION: 1. Abnormal myocardial perfusion scan with a mild reversible defect in the basal to mid inferior wal l likely representing ischemia 2. Abnormal myocardial perfusion scan. 3. Normal LV systolic function; LVEF greater than 70%. Inferior hypokinesis noted 4. Based on the results of this exam, the patient appears to be at intermediate risk for future cardi ovascular events. Report Dictated By: Caro Riley at 03/05/2019 4:13 PM Report E-Signed By: Caro Riley at 03/05/2019 4:15 PM WSN:[id number]
--- NOTE | 2019-03-05 19:56 | RT STRESS TEST REPORT ---
[place] [facility] [place]: JONATHON BULLOCK : [id number] MR: [id number] V: [id number] EXAM DATE: ORDERING PHYSICIAN: HAILEY DIAMOND TECHNOLOGIST: Aldo Acquisition Time: 2019-03-05 14:49:28 Total Exercise Time: 00:01:00 Test Indications: HISTORY OF STROKE Medications: SEE CHART. Protocol: LEXISCAN Max HR: 079 BPM 52% of Pred: 151 BPM Max BP: 111/076 mmHG Max Work Load: 1.0 METS Non-diagnositc EKG portion of lexiscan. Await imaging portion with interpretation. Confirmed by Del Hendrix ([id number]) on 03/05/2019 7:56:07 PM Referred By: Overread By: Del Dutta
== END ==
LOC: NUC 01:43
PROVIDERS: ATTEND Internal Medicine Cardiovascular Disease
DX: R93.1 Abnormal findings on diagnostic imaging of heart and coronary circulation (principal)
CPT/HCPCS: 78452; 93017; A9500; J2785

== ENCOUNTER → 2019-04-02 | Outpatient (CLI) | payer MEDICARE ==
[~2019-04-02] MED LIST changes: -REGADENOSON 0.4 MG/5 ML SYR ONE
[2019-04-02 16:08] LABS: LDL CHOLESTEROL 95 mg/dl
== END ==
LOC: LAB 14:34
PROVIDERS: ATTEND Internal Medicine Cardiovascular Disease
DX: R07.9 Chest pain, unspecified (principal); E78.00 Pure hypercholesterolemia, unspecified
CPT/HCPCS: 36415; 82310; 82374; 82435; 82465; 82565; 82947; 83718; 84132; 84295; 84478; 84520; 85027

== ENCOUNTER → 2019-06-19 | Outpatient (CLI) | payer MEDICARE ==
[~2019-06-19] MED LIST changes: +ONDA4TAB9 PO
== END ==
LOC: AMB 16:01
PROVIDERS: ATTEND Nurse Practitioner
DX: R07.1 Chest pain on breathing (principal); R06.02 Shortness of breath
CPT/HCPCS: A0425; A0427